=== PATIENT | male | born 1975 | race Caucasian/White ===

== ENCOUNTER → 2018-05-11 12:27 | Outpatient (CLI) | payer BC, SELFPAY ==
--- NOTE | 2018-05-08 09:20 | FLU_PTH ---
PATIENT: RIKKI SHER LOC: [facility] U#:[id number] AGE/SX: 49/M ROOM: RE05/11/[address]: Dr. Kate Phillips MD : 1975 BED: DIS: SPEC #: [id number] RECD: 05/11/18 07:48 STATUS: BELKYS REPj #: [id number] FERNANDO: 05/08/18 09:[address]: Kate Phillips DEPT: CYTOLOGY RECD BY: Cachorro Ramey ENTERED: 05/12/18 07:49 SP TYPE: Fluid OTHR DR: Amarilys Murguia, [employer] Tissues: A - Arm, NOS B - Arm, NOS Procedures: Special Stain Group II Surgery Specimen Level IV Cytospin Fluid Cytology Other HEADER OPERATION: Ultrasound-guided fine needle aspiration of right antecubital fossa mass PRE-OP DIAGNOSIS: Mass right antecubital fossa TISSUE SUBMITTED: A - FNA right antecubital fossa mass for cytology, B - FNA right antecubital fossa mass 6 slides DIAGNOSIS CYTOLOGY A. Fine needle aspiration, right antecubital fossa mass (cytospin and cell block): Negative for malignant cells. See comment. B. Fine needle aspiration, right antecubital fossa (smears): Negative for malignant cells. See comment. AM:rg 05/12/18 COMMENT A. The specimen contains blood. Clinical correlation is suggested. B. The specimen contains blood and rare fibrous tissue. Clinical correlation is suggested. Case has been reviewed in consultation with Dr. Krueger who concurs with the above diagnosis. IDC:CE CYTOLOGY STUDY Slides are reviewed. CYTOLOGY GROSS A - Received is 40 ml of brown cloudy fluid labeled with the patient's name and and designated per the requisition as right antecubital fossa mass. Submitted for cytology preparation including cell block. B - Received are six smears labeled with the patient's name and designated per the requisition as right antecubital fossa mass. Submitted for staining. / 05/11/18 TC:5 CPT: 24573, 92918, 48631
== END ==
PROVIDERS: Referring Provider Surgery; Visit Provider Surgery
DX: R22.31 Localized swelling, mass and lump, right upper limb (principal)
CPT/HCPCS: 88108; 88161; 88305; 88313

== ENCOUNTER → 2018-07-15 08:49 | Outpatient (CLI) | payer BC, SELFPAY | PROVIDERS: Family Provider Nurse Practitioner Family; PCP Nurse Practitioner Family; Referring Provider Nurse Practitioner Family; Visit Provider Nurse Practitioner Family | DX: R94.7 Abnormal results of other endocrine function studies (principal) | CPT/HCPCS: 36415; 82533 ==

== ENCOUNTER → 2018-09-10 09:51 | Outpatient (CLI) | payer BC, SELFPAY ==
--- NOTE | 2018-09-10 09:53 | RAD_ITS ---
STUDY: X-RAY - RIGHT RADIUS AND ULNA REASON FOR EXAM: Right mid forearm pain extending into right elbow with no specific injury. TECHNIQUE: 2 view(s) of the forearm. COMPARISON: None. FINDINGS: There is no demonstrated soft tissue swelling. Normal visualized radius. Normal visualized ulna. There is deformity of the radial aspect of the scaphoid, suggestive of remote injury with joint space narrowing of the radiocarpal compartment of the wrist. RAD/Forearm 2 Views IMPRESSION: Normal x-ray examination of the radius and ulna. Electronically Signed: Chaz Lubin MD at 15:13 EDT Tel , Service support ,
--- NOTE | 2018-09-10 09:53 | RAD_ITS ---
STUDY: X-RAY - LEFT SHOULDER REASON FOR EXAM: Left shoulder pain for years, football injury 25 years ago. TECHNIQUE: 3 view(s) of the shoulder. COMPARISON: None. FINDINGS: Normal glenohumeral articulation. Normal acromioclavicular joint. There is an os acromiale. Normal humeral head and visualized proximal humerus. The soft tissue structures are unremarkable. Normal visualized pulmonary apex. RAD/Shoulder min 2 Views IMPRESSION: Os acromiale. Electronically Signed: Chaz Lubin MD at 14:59 EDT Tel , Service support ,
== END ==
PROVIDERS: Family Provider Nurse Practitioner Family; PCP Nurse Practitioner Family; Referring Provider Orthopaedic Surgery; Visit Provider Orthopaedic Surgery
DX: M25.512 Pain in left shoulder (principal); M79.631 Pain in right forearm
CPT/HCPCS: 73030; 73090

== ENCOUNTER → 2018-09-23 12:29 | Outpatient (CLI) | payer BC, SELFPAY ==
--- NOTE | 2018-09-23 12:34 | MRI_ITS ---
STUDY: MRI LEFT SHOULDER REASON FOR EXAM: Left shoulder pain, left shoulder symptoms for 20 years. TECHNIQUE: Standardized fat and water weighted pulse sequences were obtained in all 3 orthogonal planes. COMPARISON: Radiographs 09/10/2018. FINDINGS: There is mild supraspinatus tendinosis and a small linear low to intermediate grade partial-thickness tear of the articular surface of the distal supraspinatus tendon (T2 coronal images 11, 12). There is mild infraspinatus tendinosis (T2 coronal image 9) without discrete tendon tear. Normal subscapularis tendon. Normal teres minor tendon. Normal supraspinatus muscle. Normal infraspinatus muscle. Normal subscapularis muscle. Normal teres minor muscle. Normal glenohumeral articulation. Normal humeral head and visualized proximal humerus. Normal biceps labral complex. Normal intracapsular long biceps tendon. There is a small intra-articular body in the bicipital tendon sheath (proton-density axial image 8) measuring 0.2 cm in diameter. Normal labrum. Normal capsulo- ligamentous complex. There is no substantial acromioclavicular arthrosis. There is an os acromiale (T2 axial image 3) with bone edema adjacent to the synchondrosis (T2 coronal image 14). There is a Type II morphology (curved), with a neutral orientation. There is no subacromial-subdeltoid bursal fluid. Normal visualized coracohumeral and coracoacromial ligaments. There is a low-grade strain of the proximal lateral deltoid muscle (T2 coronal images 10, 11). Normal trapezius muscle. MRI/Upper Ext Joint Only(Routine) IMPRESSION: Small partial-thickness tear and mild tendinosis of the supraspinatus tendon. Mild infraspinatus tendinosis. Os acromiale with associated bone edema. Low-grade strain of the proximal lateral deltoid muscle. Small intra-articular body in the bicipital tendon sheath. Electronically Signed: Chaz Lubin MD at 14:05 EDT Tel , Service support ,
== END ==
PROVIDERS: Referring Provider Orthopaedic Surgery; Visit Provider Orthopaedic Surgery
DX: M67.922 Unspecified disorder of synovium and tendon, left upper arm (principal); M12.812 Other specific arthropathies, not elsewhere classified, left shoulder; M75.102 Unspecified rotator cuff tear or rupture of left shoulder, not specified as traumatic; M75.42 Impingement syndrome of left shoulder
CPT/HCPCS: 73221

== ENCOUNTER → 2018-10-15 16:58 | Outpatient (CLI) | payer BC, SELFPAY ==
--- NOTE | 2018-10-15 17:02 | MRI_ITS ---
STUDY: MRI RIGHT ELBOW REASON FOR EXAM: Male, 42 years old. Mass. Pain while flexing the arm. TECHNIQUE: Standardized fat and water weighted pulse sequences were obtained in all 3 orthogonal planes. COMPARISON: X-ray dated September 10, 2018. FINDINGS: Patient motion. 1.9 cm x 1.6 cm x 1.4 cm intermediate T1 signal, high T2 signal and high STIR signal well-defined lesion at the antecubital fossa/neurovascular bundle/biceps myotendinous junction. No additional lesions identified. No acute fracture line. No dislocation. No acute bone destruction. Mild radio-capitellum arthrosis. Normal radial collateral ligamentous complex. Mild common extensor tendinosis with low-grade partial tear (coronal image 18 series 6). Mild ulnotrochlear arthrosis. Normal ulnar collateral ligamentous complex. Mild common flexor tendinosis without tear. Normal cubital tunnel and ulnar nerve. Mild/moderate biceps tendon insertional tendinosis (axial image 8 series 4). Normal lacertus fibrosis. Normal brachialis musculotendinous insertion. Normal triceps tendon and teno-osseous insertion. Normal olecranon process. No significant soft tissue swelling. Trace elbow joint effusion. MRI/Upper Ext Joint Only(Routine) IMPRESSION: 1.9 cm x 1.6 cm x 1.4 cm lesion at the antecubital fossa. Wide differential diagnosis including lymph node, vascular lesion, soft tissue sarcoma or peripheral nerve tumor of uncertain malignant potential. Postcontrast evaluation, ultrasound, biopsy and/or resection recommended. Mild common flexor and extensor tenosynovitis with low-grade partial, extensor tendon tear Mild/moderate insertional biceps tendinosis without tear Right elbow mild osteoarthritis Trace elbow joint effusion N.B. : The above information has been verbally conveyed by Nelson Dowling DO to Wander Maxwell RN, RN, on 10/16/2018 10:59:28 (ET). Electronically Signed: Nelson Dowling DO at 10:42 EDT Tel , Service support ,
== END ==
PROVIDERS: Family Provider Family Medicine; PCP Family Medicine; Referring Provider Orthopaedic Surgery; Visit Provider Orthopaedic Surgery
DX: R22.31 Localized swelling, mass and lump, right upper limb (principal)
CPT/HCPCS: 73221

== ENCOUNTER → 2018-10-16 09:28 | Outpatient (CLI) | payer BC, SELFPAY ==
[2018-10-16 10:12] LABS: Absolute Lymphocyte Count 1.73 X10^3/ul (0.83-4.51); Absolute Neutrophil Count 3.9 X10^3/uL (2.0-7.7); Basophil# 0.01 X10^3/uL; Basophil% 0.2 % (0-1); Eosinophil# 0.15 X10^3/uL; Eosinophils% 2.4 % (0-5); Hemoglobin 16.3 g/dl (13.0-16.5); Lymphocyte # 1.73 X10^3/ul (4.0); Lymphocyte % 27.6 % (19-41); Mean Corp Hgb Conc 34.7 g/gl (32-36); Mean Corpuscular Hgb 30.7 pg (27.0-32.0); Mean Corpuscular Volume 88.5 fL (80-94); Mean Platelet Vol. 9.8 fl (6.2-12.0); Neutrophil # 3.87 X10^3/uL (2.7-7.7); Neutrophil % 61.8 % (47-70); Platelet Count 210 K/mm3 (150-450); RBC Distribution Width CV 13.8 % (11.6-14.6); RBC Distribution Width SD 44.5 fl (35.1-43.9); Red Blood Count 5.31 M/mm3 (4.6-6.2); White Blood Count 6.3 K/mm3 (4.4-11.0)
[2018-10-16 10:14] LABS: POSITIVE COUNT NO; POSITIVE DIFFERENTIAL NO; POSITIVE MORPHOLOGY NO
[2018-10-16 10:46] LABS: Anion Gap 6 (5-15); BUN 22 mg/dL (7-18); BUN/Creat Ratio 17.3 RATIO (10-20); Calcium,Total 8.7 mg/dL (8.5-10.1); Chloride 108 mmol/L (98-107); Cholesterol 175 mg/dL (200); Creatinine, Serum 1.27 mg/dL (0.70-1.30); EST Glomerular Filtration Rate 66 mL/min (>60); Est Glom Filt Rate - Afr Amer 80 mL/min (>60); Glucose 85 mg/dL (74-106); High Density Lipoprotein 39 mg/dL; PSA,Total - Annual Screen 0.75 ng/mL (0.00-4.00); Potassium 4.3 mmol/L (3.5-5.1); Sodium Level 141 mmol/L (136-145); Thyroid Stim Hormone (TSH) 1.35 uIU/mL (0.358-3.74); Triglycerides 72 mg/dL; Very Low Density Lipoprotein 14 mg/dL (5-40)
== END ==
PROVIDERS: Family Provider Family Medicine; PCP Family Medicine; Referring Provider Family Medicine; Visit Provider Family Medicine
DX: Z00.00 Encounter for general adult medical examination without abnormal findings (principal); E03.9 Hypothyroidism, unspecified; E29.1 Testicular hypofunction
CPT/HCPCS: 36415; 80048; 80061; 84153; 84403; 84443; 85025; G0103

== ENCOUNTER → 2019-01-05 12:17 | Outpatient (CLI) | payer BC, SELFPAY | PROVIDERS: Family Provider Family Medicine; PCP Family Medicine; Referring Provider Family Medicine; Visit Provider Family Medicine | DX: E29.1 Testicular hypofunction (principal) | CPT/HCPCS: 36415; 84403 ==

== ENCOUNTER → 2019-02-11 12:26 | Outpatient (CLI) | payer BC, SELFPAY ==
[2019-02-11 16:17] LABS: Absolute Lymphocyte Count 1.88 X10^3/uL (0.83-4.51); Absolute Neutrophil Count 6.9 X10^3/uL (2.0-7.7); Basophil# 0.04 X10^3/uL; Basophil% 0.4 % (0-1); Eosinophil# 0.06 X10^3/uL; Eosinophils% 0.6 % (0-5); Hematocrit 48.1 % (40-54); Hemoglobin 16.3 g/dL (13.0-16.5); Lymphocyte # 1.88 X10^3/ul (4.0); Lymphocyte % 19.2 % (19-41); Mean Corp Hgb Conc 33.9 g/dL (32-36); Mean Corpuscular Hgb 30.8 pg (27.0-32.0); Mean Corpuscular Volume 90.9 fL (80-94); Monocyte# 0.91 X10^3/uL; Monocyte% 9.3 % (0-10); NRBC Flagged by Analyzer 0 % (0-5); Neutrophil # 6.85 X10^3/uL (2.7-7.7); Platelet Count 263 K/mm3 (150-450); RBC Distribution Width SD 42.4 fl (35.1-43.9); Red Blood Count 5.29 M/mm3 (4.6-6.2); White Blood Count 9.8 K/mm3 (4.4-11.0)
[2019-02-11 17:45] LABS: PSA,Total - Annual Screen 0.57 ng/mL (0.00-4.00)
== END ==
PROVIDERS: Family Provider Family Medicine; PCP Family Medicine; Referring Provider Family Medicine; Visit Provider Family Medicine
DX: E29.1 Testicular hypofunction (principal)
CPT/HCPCS: 36415; 84153; 84403; 85025; G0103

== ENCOUNTER → 2019-09-23 12:29 | Outpatient (CLI) | payer BC, SELFPAY | PROVIDERS: PCP Family Medicine; Visit Provider Family Medicine | DX: R79.89 Other specified abnormal findings of blood chemistry (principal) | CPT/HCPCS: 36415; 84403 ==

== ENCOUNTER → 2019-10-21 13:35 | Outpatient (CLI) | payer SELFPAY ==
[2019-10-21 14:55] LABS: Absolute Lymphocyte Count 2.21 X10^3/uL (0.83-4.51); Absolute Neutrophil Count 4.8 X10^3/uL (2.0-7.7); Basophil# 0.03 X10^3/uL; Basophil% 0.4 % (0-1); Eosinophil# 0.16 X10^3/uL; Hemoglobin 16.6 g/dL (13.0-16.5); Lymphocyte # 2.21 X10^3/ul (4.0); Mean Corp Hgb Conc 33.9 g/dL (32-36); Mean Corpuscular Volume 91.6 fL (80-94); Mean Platelet Vol. 10.1 fl (6.2-12.0); Monocyte# 0.73 X10^3/uL; Monocyte% 9.2 % (0-10); NRBC Flagged by Analyzer 0 % (0-5); Neutrophil # 4.76 X10^3/uL (2.7-7.7); Neutrophil % 60.3 % (47-70); Platelet Count 226 K/mm3 (150-450); RBC Distribution Width CV 12.8 % (11.6-14.6); RBC Distribution Width SD 42.7 fl (35.1-43.9); Red Blood Count 5.35 M/mm3 (4.6-6.2); White Blood Count 7.9 K/mm3 (4.4-11.0)
== END ==
PROVIDERS: PCP Family Medicine; Referring Provider Family Medicine; Visit Provider Family Medicine
DX: R79.89 Other specified abnormal findings of blood chemistry (principal)
CPT/HCPCS: 36415; 84403; 85025

== ENCOUNTER → 2022-12-21 | Outpatient (CLI) | payer OTHER, SELFPAY ==
[2022-12-21 09:08] LABS: Absolute Lymphocyte Count 2.79 X10^3/uL (0.83-4.51); Absolute Neutrophil Count 4.6 X10^3/uL (2.0-7.7); Basophil# 0.04 X10^3/uL; Basophil% 0.5 % (0-1); Eosinophil# 0.05 X10^3/uL; Eosinophils% 0.6 % (0-5); Hematocrit 51.9 % (40-54); Lymphocyte # 2.79 X10^3/ul (0.83-4.51); Lymphocyte % 34.2 % (19-41); Mean Corp Hgb Conc 32.8 g/dL (32-36); Mean Corpuscular Hgb 30.3 pg (27.0-32.0); Mean Corpuscular Volume 92.5 fL (80-94); Mean Platelet Vol. 9.7 fl (6.2-12.0); Monocyte# 0.69 X10^3/uL; Monocyte% 8.5 % (0-10); NRBC Flagged by Analyzer 0 % (0-5); Neutrophil # 4.56 X10^3/uL (2.7-7.7); Platelet Count 237 K/mm3 (150-450); RBC Distribution Width CV 13.9 % (11.6-14.6); Red Blood Count 5.61 M/mm3 (4.6-6.2); White Blood Count 8.2 K/mm3 (4.4-11.0)
[2022-12-21 10:03] LABS: ALB/GLOB Ratio 1.1 RATIO (0.9-2.4); AST(SGOT) 47 U/L (15-37); Alanine Aminotransfer ALT/SGPT 56 U/L (16-61); Albumin, Serum 3.6 g/dL (3.2-5.0); Alkaline Phosphatase 53 U/L (45-117); Anion Gap 3 (5-15); BUN 28 mg/dL (7-18); BUN/Creat Ratio 23.5 RATIO (10-20); Calcium,Total 8.8 mg/dL (8.5-10.1); Chloride 108 mmol/L (98-107); Cholesterol 231 mg/dL (200); Creatinine, Serum 1.19 mg/dL (0.70-1.30); EST Glomerular Filtration Rate 70 mL/min (>60); Est Glom Filt Rate - Afr Amer 85 mL/min (>60); Globulin 3.3 g/dL (2.2-4.2); Glucose 91 mg/dL (74-106); High Density Lipoprotein 45 mg/dL; PSA,Total - Annual Screen 3.56 ng/mL (0.00-4.00); Potassium 3.8 mmol/L (3.5-5.1); Protein, Total 6.9 g/dL (6.4-8.2); Sodium Level 140 mmol/L (136-145); Triglycerides 97 mg/dL; Very Low Density Lipoprotein 19 mg/dL (5-40)
[2022-12-23 09:02] LABS: Vitamin D,25 Hydroxy 65.8 ng/mL
[2023-01-03 22:06] LABS: Testosterone Free 10.6 pg/mL (6.8-21.5)
== END | disposition home or self-care (01) ==
PROVIDERS: PCP Family Medicine; Visit Provider Nurse Practitioner Family
DX: Z00.00 Encounter for general adult medical examination without abnormal findings (principal); Z12.5 Encounter for screening for malignant neoplasm of prostate; Z13.21 Encounter for screening for nutritional disorder; R79.89 Other specified abnormal findings of blood chemistry
CPT/HCPCS: 36415; 80053; 80061; 82306; 84153; 84402; 84403; 85025; G0103